=== PATIENT | female | born 1930 | race Caucasian/White ===

== ENCOUNTER 2017-02-19 19:56 | Emergency (ER) | payer MEDICARE ==
[2017-02-19 20:45] LABS: Hemoglobin 11.9 g/dL (12.0-16.0); Mean Corpuscular HGB CONC 32.2 g/dL (32.0-36.0); Mean Corpuscular Hemoglobin 28.9 pg (27.0-31.0); Mean Corpuscular Volume 89.6 fl (81.0-99.0); Mean Platelet Volume 6.9 fL (7.4-10.4); Platelet Count 279 thou/uL (130-400); RBC Distribution Width 13.9 % (11.5-14.5); Red Blood Cell (RBC) Count 4.12 mill/uL (4.20-5.40); White Blood Cell (WBC) Count 4.6 thou/uL (4.8-10.8)
[2017-02-19 20:54] LABS: Lactic Acid 0.8 mmol/L (0.5-2.2)
[2017-02-19 21:01] LABS: ALT (SGPT) 11 U/L (8-55); AST (SGOT) 22 U/L (5-34); Albumin 2.9 g/dL (3.4-4.8); Alkaline Phosphatase 71 U/L (40-150); Anion Gap 13 mmol/L (10-20); BUN (Urea Nitrogen) 29 mg/dL (9.8-20.1); Bilirubin, Total 0.3 mg/dL (0.2-1.2); Calc. Creatinine Clearance 0 mL/min (70-130); Calcium 9.2 mg/dL (7.8-10.44); Carbon Dioxide 29 mmol/L (23-31); Chloride 101 mmol/L (98-107); Estimated GFR-MDRD 31; Globulin 3.5 g/dL (2.4-3.5); Glucose 85 mg/dL (83-110); Potassium 4.1 mmol/L (3.5-5.1); Protein, Total 6.4 g/dL (6.0-8.3); Sodium 139 mmol/L (136-145)
[2017-02-19 21:07] LABS: Band 6 % (5-11); Eosinophils 4 % (0-10); Lymphocytes 14 % (21-51); MDiff Complete? YES; Monocytes 11 % (0-10); Neutrophil 65 % (42-75)
--- NOTE | 2017-02-19 22:30 | RAD ---
CHEST ONE VIEW: History: Cough and congestion. Comparison: 2014 FINDINGS: There is increased kyphosis since the comparison examination. There appears to be increased markings in the lung apices which may be from scaring. Lungs are hyperinflated. Cardiac silhouette and mediast inal contours are within normal limits. No acute osseous abnormality. IMPRESSION: 1. Lung hyperinflation suggestive of obstructive pulmonary disease. 2. Increased markings in the lung apices may reflect underlying scarring. 3. Possible nodule in the right infrahilar region. Non-emergent follow up CT recommended. Code LN POS: [facility]
== END 2017-02-19 22:10 ==
LOC: ERS 19:56
DX: J11.1 Influenza due to unidentified influenza virus with other respiratory manifestations (principal); F03.90 Unspecified dementia, unspecified severity, without behavioral disturbance, psychotic disturbance, mood disturbance, and anxiety; M81.0 Age-related osteoporosis without current pathological fracture; I25.10 Atherosclerotic heart disease of native coronary artery without angina pectoris; I73.9 Peripheral vascular disease, unspecified; G62.9 Polyneuropathy, unspecified; J44.9 Chronic obstructive pulmonary disease, unspecified
CPT/HCPCS: 36415; 71045; 80053; 83605; 85025

== ENCOUNTER 2018-12-10 08:54 | Emergency (ER) | payer MEDICARE ==
--- NOTE | 2018-12-10 09:54 | RAD ---
XR Chest 1 View Portable History: Crackles and cough Comparison: Radiograph February 19, 2017 Findings: Lungs are mildly hyperinflated. Scarring in the lung apices. Exam is limited due to rightwa rd patient rotation. No confluent airspace consolidation, pneumothorax, or effusion. Impression: No acute intrathoracic abnormality.
[2018-12-10 10:00] LABS: #Eosinphils 0.6 thou/uL (0.0-0.7); #Lymphocytes 1.3 thou/uL (1.20-3.40); #Monocytes 0.7 thou/uL (0.11-0.59); #Neutrophils 5.3 thou/uL (1.40-6.50); %Basophils 0.5 % (0.0-1.0); %Eosinophils 7.8 % (0.0-10.0); %Lymphocytes 16.5 % (21.0-51.0); %Monocytes 9.1 % (0.0-10.0); Hemoglobin 12.5 g/dL (12.0-16.0); Mean Corpuscular HGB CONC 31.1 g/dL (32.0-36.0); Mean Corpuscular Volume 86.7 fL (78.0-98.0); Mean Platelet Volume 6.8 fL (7.4-10.4); Platelet Count 360 thou/uL (130-400); RBC Distribution Width 14.4 % (11.5-14.5); Red Blood Cell (RBC) Count 4.65 mill/uL (4.20-5.40); White Blood Cell (WBC) Count 8.1 thou/uL (4.8-10.8)
[2018-12-10 10:19] LABS: ALT (SGPT) 16 U/L (8-55); AST (SGOT) 20 U/L (5-34); Albumin 3.6 g/dL (3.4-4.8); Alkaline Phosphatase 89 U/L (40-110); Anion Gap 12 mmol/L (10-20); BUN (Urea Nitrogen) 35 mg/dL (9.8-20.1); Bilirubin, Total 0.3 mg/dL (0.2-1.2); Calc. Creatinine Clearance 0 mL/min (70-130); Calcium 8.9 mg/dL (7.8-10.44); Carbon Dioxide 28 mmol/L (23-31); Chloride 107 mmol/L (98-107); Estimated GFR-MDRD 34; Globulin 2.9 g/dL (2.4-3.5); Glucose 82 mg/dL (83-110); Potassium 4.6 mmol/L (3.5-5.1); Protein, Total 6.5 g/dL (6.0-8.3); Sodium 142 mmol/L (136-145)
--- NOTE | 2018-12-10 12:01 | CT ---
CT ANGIOGRAM CHEST: HISTORY: Dyspnea. COMPARISON: None. TECHNIQUE: CT angiogram of the chest is performed in the axial plane. Three dimensional reformatted images are s ubmitted for interpretation. FINDINGS: Mediastinum: 1.1 x 0.8 cm paratracheal lymph node. Additional lymph nodes may be present. Limited madina luation due to beam attenuation artifact. There does appear to be an enlarged lymph node measuring 1.5 x 1.2 cm. A moderate hiatal hernia is identified. Heart: Normal size. No significant pericardial fluid. Aorta: No aneurysm or dissection. Upper solid abdominal viscera: No abnormality enhancement. Trachea and central bronchi: Patent. Pleural spaces: No effusion. Lung parenchyma: Extensive emphysematous changes. Irregular marginated opacity in the left upper lobe /left apex may represent focal area of scar. This opacity measures 3.4 x 1.1 cm. Additional areas of scar and atelectasis are noted in the middle lobe. A more focal opacity is noted in the medial asp ect of the left upper lobe. The opacity measures 2.4 x 1.5 cm. Pneumothorax: None. Osseous structures: Market kyphosis. No lytic or blastic lesions. Pulmonary arteries: Adequate contrast opacification pulmonary arterial system to the level of segment al arteries. No filling defect to suggest pulmonary embolism. IMPRESSION: 1. No evidence of pulmonary artery embolism to level segmental arteries. 2. Presumed chronic changes in the lung parenchyma. Scarring and atelectasis scattered throughout the lungs. More focal opacity in the left upper lobe, left lung apex and adjacent to the left heart border may represent areas of atelectasis or scar. Infiltrate cannot be excluded. Short-term follow-u p CT is recommended. Transcribed Date/Time: 12/10/2018 12:08 PM
[2018-12-10] MEDS ORDERED: ISOVUE-370 76%-LOCM 1 ML ONE (12:22)
== END 2018-12-10 14:33 | disposition home or self-care (01) ==
LOC: ERS 08:54
DX: R09.02 Hypoxemia (principal); F03.90 Unspecified dementia, unspecified severity, without behavioral disturbance, psychotic disturbance, mood disturbance, and anxiety; M81.0 Age-related osteoporosis without current pathological fracture; I25.10 Atherosclerotic heart disease of native coronary artery without angina pectoris; J44.9 Chronic obstructive pulmonary disease, unspecified; Z79.899 Other long term (current) drug therapy
CPT/HCPCS: 36415; 71045; 71275; 80053; 83880; 84484; 85025; 93005; 96360; Q9966